=== PATIENT | male | born 1955 | race Caucasian/White ===

== ENCOUNTER 2024-02-29 16:55 | Emergency (ER) | payer OTHER, SELFPAY ==
[2024-02-29 16:57] VITALS: BP 161/84
[2024-02-29 17:25] LABS: % Basophils 0.5 % (0-2); % Eosinophils 1.2 % (0-6); % Immature Granulocytes 1.8 % (0-0.5); % Lymphocytes 20.4 % (20.5-51.1); % Monocytes 8.2 % (1.7-9.3); % Neutrophils 67.9 % (42.2-75.2); Absolute Basophils 0.1 10^3/uL (0-0.2); Absolute Eosinophils 0.1 10^3/uL (0-0.7); Absolute Immature Granulocytes 0.2 10^3/uL (0-0.05); Absolute Lymphocytes 2.1 10^3/uL (1.2-3.4); Absolute Monocytes 0.8 10^3/uL (0.1-0.6); Absolute Neutrophils 6.9 10^3/uL (1.4-6.5); Hematocrit 45.6 % (39.0-52.0); Hemoglobin 15.1 g/dL (13.0-18.0); Mean Corp Hgb Conc. 33.1 g/dL (33.0-37.0); Mean Corpuscular Hgb 27.8 pg (27.0-31.0); Mean Corpuscular Volume 83.8 fL (80.0-94.0); Mean Platelet Volume 10.4 fL (7.4-10.4); Nucleated Red Blood Cells % 0 % (-); Platelet Count 225 10^3/uL (130-400); Red Blood Cell Count 5.44 10^6/uL (4.70-6.10); Red Cell Dist. Width 15.9 % (11.5-14.5); White Blood Cell Count 10.1 10^3/uL (4.8-10.8)
[2024-02-29 17:44] LABS: ALT (SGPT) 48 U/L (0-50); AST (SGOT) 33 U/L (17-59); Albumin 4.3 g/dl (3.5-5.0); Alkaline Phosphatase 97 U/L (38-126); Blood Urea Nitrogen 24 mg/dl (9-20); Calcium 9.9 mg/dl (8.4-10.2); Carbon Dioxide 26 mmol/L (22-30); Chloride 99 mmol/L (98-107); Glucose 151 mg/dl (70-99); Potassium 3.9 mmol/L (3.5-5.1); Sodium 136 mmol/L (135-145); Total Bilirubin 0.5 mg/dl (0.2-1.3); Total Protein 7.4 g/dl (6.3-8.2); eGFR > 60.00
[2024-02-29 17:48] VITALS: BMI 29.6
[2024-02-29 17:53] VITALS: BP 108/78
[2024-02-29 17:56] LABS: Troponin I < 0.012 ng/ml
--- NOTE | 2024-02-29 17:56 | ED.GENMED ---
History of Present Illness
General
Chief Complaint: Chest Pain
Source: patient
Exam Limitations: none
Time Seen by Provider: 02/29/24 17:44
Nursing documentation reviewed up to this point in time: agreed with
Travel History
Have you had any contact with someone who has COVID-19?: No
Do you have any symptoms of coronavirus? Fever > 100 degrees, chills, cough, shortness of breath, sore throat, loss of taste or smell, muscle aches, or headache?: No
History of Present Illness
History of Present Illness:
68-year-old male past medical history of hypertension hyperlipidemia previous lung cancer status post lobectomy, diabetes presenting to the emergency department today with concerns of central chest pressure that lasted roughly 20 minutes while at
[facility] improved after 20 minutes or so has some mild shortness of breath associated denies any ongoing symptoms
Review of Systems
Review of Systems
Allergies reviewed?: Yes
All Other Systems: ROS reviewed and negative except as documented in HPI and ROS
Phy Exam
Physical Exam
Physical Exam:
GENERAL: Alert , in no apparent distress
EYE: pupils equal and reactive
NECK: Supple, no significant adenopathy.
ENT: o/p clr, mmm.
CARDIAC: Regular rate and rhythm .
LUNGS: Clear breath sounds bilaterally, no acute respiratory distress, no wheezes/rales/rhonchi
ABDOMEN: Soft, without focal tenderness, no r/g, no cvat
NEUROLOGICAL: Alert and oriented, no focal neuro deficits
SKIN: Warm and dry, skin intact.
MUSCULOSKELETAL: No edema, well perfused.
PSYCH: Normal and appropriate interaction.
Scores
Heart Score for Chest Pain Patients
STEMI patient?: No
History: Slightly or Non-Suspicious
ECG: Normal
Age: >/= 65 years
Risk Factors: >/= 3 Risk Factors or History of CAD
Troponin: </= Normal Limit
Heart Score for Chest Pain Patients: 4
Heart Score Risk: 20.3% MACE over next 6 weeks
Course
Orders/Labs/Results
Orders:
Orders
02/29/24 16:56
ECG [Electrocardiogram (*1)] Urgent
Reason for Study: Chest Pain
EKG- Treatment ONCE
02/29/24 17:18
Complete Blood Count/With Diff Urgent
Comprehensive Metabolic Panel Urgent
Troponin I Urgent
02/29/24 17:49
Chest [CR Chest - 2 Views ] Urgent
Comment:
Reason For Exam: cp
02/29/24 17:55
Aspirin 325 mg PO NOW STA
02/29/24 18:31
D-Dimer Urgent
02/29/24 19:54
Troponin I Urgent
Abnormal Lab Results
02/29/24 02/29/24
17:18 18:31
RDW 15.9 H %
(11.5-14.5)
Abs Immat Gran (auto) 0.2 H 10^3/uL
(0-0.05)
Absolute Neuts (auto) 6.9 H 10^3/uL
(1.4-6.5)
Absolute Monos (auto) 0.8 H 10^3/uL
(0.1-0.6)
Immature Gran % 1.8 H %
(0-0.5)
Lymphocytes % 20.4 L %
(20.5-51.1)
D-Dimer 0.56 H ug/mlFEU
(0.00-0.50)
BUN 24 H mg/dl
(9-20)
Glucose 151 H mg/dl
(70-99)
02/29/24 17:18
02/29/24 17:18
Vital Signs
Initial and Last Documented VS:
Initial Vital Signs
Temp Pulse Resp BP Pulse Ox
97.5 F 110 20 161/84 96
02/29/24 16:57 02/29/24 16:57 02/29/24 16:57 02/29/24 16:57 02/29/24 16:57
Last Documented Vital Signs
Temp Pulse Resp BP Pulse Ox
97.5 F 87 15 99/70 94
02/29/24 16:57 02/29/24 21:00 02/29/24 21:00 02/29/24 21:00 02/29/24 21:00
MDM/Problems Addressed
MDM/Problems Addressed:
60-year-old male presenting to the emergency department today with concerns of central chest pressure no radiation associated shortness of breath roughly 20 minutes roughly 2 and half hours prior to arrival to the emergency department. Currently
asymptomatic slightly tachycardic upon arrival otherwise vital signs are normal. Labs unremarkable EKG without obvious signs of ischemia.. Patient denies symptoms throughout ER stay dimer 0.56 below patient's age adjusted cutoff. Troponin
negative second troponin ordered and also negative. Chest x-ray did show an elevated hemidiaphragm on the left side and evidence of previous lobectomy. Patient was notified of results and will follow-up closely with his spring forger which he
claims he can follow-up closely at the [facility]. He was offered information to follow-up here in our closed-loop follow-up but he was not interested in this follow-up. He was given strict return precautions otherwise stable throughout ER stay discharged
home for close outpatient follow-up.
*Critical Care Note
Total Time (30-74mins, 75-104mins- exclusive of procedures): Not Applicable
ED Attending Note
-
Portions of this chart may have been created with voice recognition software.� Occasional wrong word or��sound alike� substitutions may have occurred due to the inherent limitations of voice recognition software.
Discharge Plan
Departure
Patient Disposition: Home (Routine Discharge)
Date of Disposition: 02/29/24
Time of Disposition: 21:30
Patient with high blood pressure during this ER visit?: No
Condition: Good
Covid-19: Not Applicable
Discharge Problem:
Chest pain
Instructions: Chest Pain NON-[facility] [employer] [facility] Up Follow Up
Referrals:
UNKNOWN - PT DOES,NOT KNOW [Family Provider] -
Activity Restrictions/Additional Instructions:
You came to the emergency department today with concerns of chest discomfort. Here you had 2 negative troponin levels and negative dimer level and EKG your chest x-ray did not show any emergent findings but did show an elevation of the left
hemidiaphragm. Please follow very closely as an outpatient and see your outpatient spring forger at the [facility] within 1 to 2 weeks. Return to the emergency department for any worsening, new or concerning symptoms.
Interventions
Interventions:
*Risk Screen - Suicide Last Done: 02/29/24 17:48
*General Assessment Last Done: 02/29/24 17:48
*Neglect/Abuse Screening Last Done: 02/29/24 17:48
ED- Fall Risk Assessment Last Done: 02/29/24 18:44
*ED COVID-19 Vaccine History Last Done: 02/29/24 17:48
*Nursing Disposition Last Done: 02/29/24 21:31
ED- Cardiac Assessment Last Done: 02/29/24 17:48
Discharge Date and Time
Discharge Date/Time: 02/29/24 21:39
Print Language: [id number]
[2024-02-29] MEDS: ASPIRIN 325 MG PO (18:02)
[2024-02-29 18:52] LABS: D-Dimer 0.56 ug/mlFEU (0.00-0.50)
[2024-02-29 19:02] VITALS: BP 115/79
[2024-02-29 20:00] VITALS: BP 108/69
[2024-02-29 20:23] LABS: Troponin I < 0.012 ng/ml
[2024-02-29 21:00] VITALS: BP 99/70
== END 2024-02-29 21:39 | disposition home or self-care (01) ==
LOC: EMR 16:55
PROVIDERS: Emergency Medicine; Physician Assistant; EMERGENCY PHYSICIAN Student in an Organized Health Care Education/Training Program
DX: R07.89 Other chest pain (principal); I10 Essential (primary) hypertension; E78.00 Pure hypercholesterolemia, unspecified; E11.9 Type 2 diabetes mellitus without complications; I25.10 Atherosclerotic heart disease of native coronary artery without angina pectoris; Z85.850 Personal history of malignant neoplasm of thyroid; Z90.2 Acquired absence of lung [part of]; Z90.79 Acquired absence of other genital organ(s)
CPT/HCPCS: 99283; 71046; 80053; 84484; 85025; 85379; 93005